=== PATIENT | male | born 1990 | race American Indian/Alaskan Native ===

== ENCOUNTER 2016-08-06 10:22 | Emergency (ER) | payer SELFPAY ==
[2016-08-06 10:47] VITALS: BP 145/90
--- NOTE | 2016-08-06 11:32 | Emergency Department Report ---
Entered by LUCERO DOOLEY, acting as scribe for ALIN DOE NP. ED ENT HPI - General Chief complaint: Dental/Oral Stated complaint: ABCESS Time Seen by Provider: 08/06/16 10:51 Source: patient Mode of arrival: Ambulatory Limitations: No Limitations - History of Present Illness Initial comments: This is a 25 y/o male that is non-toxic, non ill appearing, in no acute distress with c/o tooth #9 dental pain that began 2 day ago. Rates pain a 5/10 in severity, and aching in quality. Patient states that he believes it's a dental abscess. He denies fever, chills, nausea, vomiting, headache, chest pain , SOB, stiff neck, and facial swelling. Patient notes that he has a dentist appointment tomorrow. Allergic to aspirin. MD complaint: tooth pain (# 9) Onset/Timin -: days(s) Location: tooth # (9) Severity: moderate Severity scale (0 -10): 5 Quality: aching Consistency: constant Improves with: none Worsens with: none Associated Symptoms: toothache (left upper tooth #9). denies: fever, cough, gum swelling, pain with swallowing, sore throat, discharge from ear, rhinorrhea - Related Data Previous Rx's Medication Instructions Recorded Last Taken Type Penicillin Vk [Veetids TAB] 500 mg PO QID #28 tablet 12/29/13 Unknown Rx traMADol [Ultram] 50 mg PO Q6HR PRN #20 tablet 12/29/13 Unknown Rx Cyclobenzaprine [Flexeril 10 MG 10 mg PO TID PRN #20 tablet 10/11/14 Unknown Rx TAB] traMADol [Ultram 50 MG tab] 50 mg PO Q6HR PRN #20 tablet 10/11/14 Unknown Rx Amoxicillin/K Clav Tab [Augmentin 1 tab PO Q12HR #20 tab 08/06/16 Unknown Rx 875 mg] Allergies Allergy/AdvReac Type Severity Reaction Status Date / Time aspirin Allergy Hives Verified 12/29/13 05:36 ED Dental HPI - General Chief complaint: Dental/Oral Stated complaint: ABCESS Source: patient Mode of arrival: Ambulatory Limitations: No Limitations - History of Present Illness MD complaint: tooth pain (#9) Onset/Timin -: days(s) Severity: moderate (5/10) Quality: aching Consistency: constant Improves with: none Worsens with: none Dental Associated Symptons: No: Headache, Earache, Sore Throat, Gum Swelling, Fever - Related Data Previous Rx's Medication Instructions Recorded Last Taken Type Penicillin Vk [Veetids TAB] 500 mg PO QID #28 tablet 12/29/13 Unknown Rx traMADol [Ultram] 50 mg PO Q6HR PRN #20 tablet 12/29/13 Unknown Rx Cyclobenzaprine [Flexeril 10 MG 10 mg PO TID PRN #20 tablet 10/11/14 Unknown Rx TAB] traMADol [Ultram 50 MG tab] 50 mg PO Q6HR PRN #20 tablet 10/11/14 Unknown Rx Amoxicillin/K Clav Tab [Augmentin 1 tab PO Q12HR #20 tab 08/06/16 Unknown Rx 875 mg] Allergies Allergy/AdvReac Type Severity Reaction Status Date / Time aspirin Allergy Hives Verified 12/29/13 05:36 ED Review of Systems Comment: All other systems reviewed and negative Constitutional: denies: chills, fever ENT: dental pain (left upper #9). denies: ear pain, throat pain Respiratory: denies: cough, orthopnea, shortness of breath, SOB with exertion, SOB at rest, stridor, wheezing Cardiovascular: denies: chest pain, palpitations Gastrointestinal: denies: nausea, vomiting Musculoskeletal: denies: other (stiff neck) Skin: denies: rash, lesions, other (facial swelling) Neurological: denies: headache, numbness, paresthesias ED Past Medical Hx - Past Medical History Previous Medical History?: No Hx Hypertension: No Hx CVA: No Hx Heart Attack/AMI: No Hx Congestive Heart Failure: No Hx Diabetes: No Hx Deep Vein Thrombosis: No Hx Pulmonary Embolism: No Hx GERD: No Hx Liver Disease: No Hx Renal Disease: No Hx Sickle Cell Disease: No Hx Arthritis: No Hx Headaches / Migraines: No Hx Seizures: No Hx Kidney Stones: No Hx Psychiatric Treatment: No Hx Asthma: No Hx COPD: No Hx Tuberculosis: No Hx Dementia: No Hx HIV: No - Surgical History Past Surgical History?: Yes Hx Coronary Stent: No Hx Open Heart Surgery: No Hx Pacemaker: No Hx Internal Defibrillator: No Hx Cholecystectomy: No Hx Appendectomy: No Hx Breast Surgery: No Additional Surgical History: foot surgery on pinkie toe - Social History Smoking Status: Current Every Day Smoker Substance Use Type: None - Medications Home Medications: Home Medications Medication Instructions Recorded Confirmed Last Taken Type Penicillin Vk [Veetids TAB] 500 mg PO QID #28 tablet 12/29/13 Unknown Rx traMADol [Ultram] 50 mg PO Q6HR PRN #20 tablet 12/29/13 Unknown Rx Cyclobenzaprine [Flexeril 10 MG 10 mg PO TID PRN #20 tablet 10/11/14 Unknown Rx TAB] traMADol [Ultram 50 MG tab] 50 mg PO Q6HR PRN #20 tablet 10/11/14 Unknown Rx Amoxicillin/K Clav Tab [Augmentin 1 tab PO Q12HR #20 tab 08/06/16 Unknown Rx 875 mg] ED Physical Exam - General Limitations: No Limitations General appearance: alert, in no apparent distress - Head Head exam: Present: atraumatic, normocephalic. Absent: other (facial swelling) - Eye Eye exam: Present: normal appearance, PERRL, EOMI Pupils: Present: normal accommodation - ENT ENT exam: Present: normal exam, mucous membranes moist, normal external ear exam - Expanded ENT Exam Expanded Ear exam: Present: normal external inspection Mouth exam: Present: normal external inspection (uvula is midline), tongue normal. Absent: drooling, trismus, muffled voice, tongue elevation, laceration Teeth exam: Present: normal inspection, fractured tooth # (9), dental tenderness # (9). Absent: dental caries, gingival enlargement, other (no dental abscess, fluntuance, drainage, and pus) Throat exam: Positive: normal inspection. Negative: tonsillar erythema, tonsillomegaly, tonsillar exudate, R peritonsillar mass, L peritonsillar mass - Neck Neck exam: Present: normal inspection, full ROM. Absent: tenderness, meningismus, lymphadenopathy - Respiratory Respiratory exam: Present: normal lung sounds bilaterally. Absent: respiratory distress, wheezes, rales, rhonchi, stridor - Cardiovascular Cardiovascular Exam: Present: regular rate, normal rhythm. Absent: systolic murmur, diastolic murmur, rubs, gallop - GI/Abdominal GI/Abdominal exam: Present: soft, normal bowel sounds. Absent: distended - Extremities Exam Extremities exam: Present: normal inspection, full ROM - Back Exam Back exam: Present: normal inspection - Neurological Exam Neurological exam: Present: alert, oriented X3 - Psychiatric Psychiatric exam: Present: normal affect, normal mood - Skin Skin exam: Present: warm, dry, intact. Absent: rash ED Course Vital Signs 08/06/16 10:45 Temperature 98.7 F Pulse Rate 78 Respiratory 16 Rate Blood Pressure 145/90 O2 Sat by Pulse 100 Oximetry ED Medical Decision Making - Medical Decision Making Ed course: This is a 25-year-old male that presents with gingivitis and dental caries 1- patient received Augmentin at discharge and was instructed to follow up with dentist tomorrow. 2- at time time of discharge, the patient does not seem toxic or ill in appearance. No acute signs of distress noted. Patient agrees to discharge treatment plan of care. No further questions noted by the patient. ED Disposition Clinical Impression: Dental caries, Gingivitis Disposition: DC- TO HOME OR SELFCARE Is pt being admited?: No Does the pt Need Aspirin: No Condition: Stable Instructions: Dental Caries (ED), Gingivitis (ED), Amoxicillin/Clavulanate Potassium (By mouth) Additional Instructions: Follow-up dentist in 24 hours Take full course of antibiotics as prescribed. Prescriptions: Amoxicillin/K Clav Tab [Augmentin 875 mg] 1 tab PO Q12HR #20 tab Referrals: CIELO COVINGTON JR, MD [Staff Physician] - 3-5 Days [facility] [Outside] - 3-5 Days Forms: Work/School Release Form(ED) This documentation as recorded by the SOUMYA mendes JASMINE,accurately reflects the service I personally performed and the decisions made by ,ALIN DOE, WES.
== END 2016-08-06 11:50 | disposition home or self-care (01) ==
LOC: ED 10:22
DX: K02.9 Dental caries, unspecified (principal); K05.10 Chronic gingivitis, plaque induced; F17.200 Nicotine dependence, unspecified, uncomplicated
CPT/HCPCS: 99281

== ENCOUNTER 2016-09-04 11:42 | Emergency (ER) | payer SELFPAY ==
[2016-09-04 11:50] VITALS: BP 141/87
--- NOTE | 2016-09-04 12:58 | Emergency Department Report ---
HPI - General Chief Complaint: Upper Respiratory Infection Time Seen by Provider: 09/04/16 12:58 - HPI HPI: Patient is complaining of upper respiratory symptoms. He said he feels like he has the flu for 4 days. Denies any fever or chills. He reports that he has cough and nasal congestion. Denies any dizziness. Report called dear sensation. Denies any sore throat or difficulty swallowing. Denies any shortness of breath or chest pain. He said he took NyQuil for the Aakash but it didn't help. He is denying any pain at present. Patient said this is been going on for a week and half. ED Past Medical Hx - Past Medical History Previous Medical History?: No Hx Hypertension: No Hx CVA: No Hx Heart Attack/AMI: No Hx Congestive Heart Failure: No Hx Diabetes: No Hx Deep Vein Thrombosis: No Hx Pulmonary Embolism: No Hx GERD: No Hx Liver Disease: No Hx Renal Disease: No Hx Sickle Cell Disease: No Hx Arthritis: No Hx Headaches / Migraines: No Hx Seizures: No Hx Kidney Stones: No Hx Psychiatric Treatment: No Hx Asthma: No Hx COPD: No Hx Tuberculosis: No Hx Dementia: No Hx HIV: No - Surgical History Past Surgical History?: Yes Hx Coronary Stent: No Hx Open Heart Surgery: No Hx Pacemaker: No Hx Internal Defibrillator: No Hx Cholecystectomy: No Hx Appendectomy: No Hx Breast Surgery: No Additional Surgical History: foot surgery on pinkie toe - Family History Family history: hypertension - Social History Smoking Status: Current Every Day Smoker Substance Use Type: None Other Social History: single - Medications Home Medications: Home Medications Medication Instructions Recorded Confirmed Last Taken Type Penicillin Vk [Veetids TAB] 500 mg PO QID #28 tablet 12/29/13 Unknown Rx traMADol [Ultram] 50 mg PO Q6HR PRN #20 tablet 12/29/13 Unknown Rx Cyclobenzaprine [Flexeril 10 MG 10 mg PO TID PRN #20 tablet 10/11/14 Unknown Rx TAB] traMADol [Ultram 50 MG tab] 50 mg PO Q6HR PRN #20 tablet 10/11/14 Unknown Rx Amoxicillin/K Clav Tab [Augmentin 1 tab PO Q12HR #20 tab 09/04/16 Unknown Rx 875MG TAB] Cetirizine HCl [ZyrTEC] 10 mg PO QDAY #14 capsule 09/04/16 Unknown Rx Fluticasone [Flonase] 1 spray NS QDAY #1 bottle 09/04/16 Unknown Rx ED Review of Systems ROS: Stated complaint: FLU SYMPTOMS/SORE BODY/THROAT Other details as noted in HPI Comment: All other systems reviewed and negative Constitutional: denies: chills, fever Eyes: denies: eye pain, eye discharge ENT: congestion ( congestion, clogged ear sensation and a runny nose). denies: ear pain, throat pain, dental pain Respiratory: cough. denies: shortness of breath, SOB with exertion, SOB at rest , stridor, wheezing Cardiovascular: denies: chest pain, palpitations, edema, syncope Gastrointestinal: denies: abdominal pain, nausea, vomiting, diarrhea Skin: denies: rash Neurological: denies: headache, weakness, numbness, paresthesias, confusion, abnormal gait, vertigo Physical Exam - Physical Exam Vital Signs: Vital Signs 09/04/16 11:46 Temperature 98.6 F Blood Pressure 141/87 O2 Sat by Pulse 100 Oximetry General: . This is a 25-year-old male well-nourished well-developed in no acute distress Physical Exam: Head: Normocephalic, atraumatic. No abrasions, laceration or contusion Neck: Supple, no adenopathy. Full range of motion. No C-spine tenderness. No muscular tenderness Ears: Bilateral TMs congested, bilaterally EAC without any redness swelling or drainage. Nose: Bilateral nasal mucosa with erythema and congestion. No drainage. No maxillary or frontal sinus tenderness. Mouth: Moist, no pharyngeal exudate or erythema. Uvula is midline and oral airways patent. Tongue is normal. No trismus. No peritonsillar abscess. Lungs: Clear Auscultated bilaterally no rhonchi wheezes or rales Extremity: No clubbing, cyanosis or edema. +2 pulses in all extremities. No neurovascular compromise. Capillary refill is less than 3 seconds. Good color , sensation, movement and temperature in all extremities. Able to ambulate without any difficulties. Skin: Clean dry and intact, no rash or lesions. PSYCH: Normal mood and behavior ED Course Vital Signs 09/04/16 11:46 Temperature 98.6 F Blood Pressure 141/87 O2 Sat by Pulse 100 Oximetry Vital Signs 09/04/16 09/04/16 11:46 13:43 Temperature 98.6 F Pulse Rate 78 Respiratory 17 Rate Blood Pressure 141/87 O2 Sat by Pulse 100 Oximetry - Reevaluation(s) Reevaluation #1: 09/04/16 13:55 Patient had uneventful ED course ED Medical Decision Making - Radiology Data Radiology results: report reviewed - Medical Decision Making [facility] ASSESS/PLAN: ED course: PT here with cold-like symptoms which she thought was flu. Has no fever and respiratory lewis he stable and diagnosed with sinusitis and cough. Discharge diagnosis and treatment plan discussed the patient and he voiced understanding. She does not have a primary care physician so I instructed him to follow up at [facility] for primary care and follow-up sinusitis. Patient was last year on 08/06/2016. Given the fact that patient had symptoms for greater than 10 days I will start him on antibiotic Diagnosis: Acute sinusitis, cough Meds medication: Patient discharged home with prescription for Zyrtec, Flonase and Augmentin. Instructed him that he needs to flush his nostrils out with nasal saline. Patient to follow up with [facility] in 3-5 days. Patient discharged home from emergency room in stable condition Critical care attestation.: If time is entered above; I have spent that time in minutes in the direct care of this critically ill patient, excluding procedure time. ED Disposition Clinical Impression: Cough Acute sinusitis Qualifiers: Sinusitis location: unspecified location Recurrence: non-recurrent Qualified Code(s): J01.90 - Acute sinusitis, unspecified Disposition: - TO HOME OR SELFCARE Is pt being admited?: No Does the pt Need Aspirin: No Condition: Stable Instructions: Sinusitis (ED), Acute Cough (ED) Additional Instructions: Follow-up with your primary care or at [facility] Take antibiotic as prescribed Take Medication as prescribed Saline nasal wash. Prescriptions: Amoxicillin/K Clav Tab [Augmentin 875MG TAB] 1 tab PO Q12HR #20 tab Cetirizine HCl [ZyrTEC] 10 mg PO QDAY #14 capsule Fluticasone [Flonase] 1 spray NS QDAY #1 bottle Referrals: [facility] [Outside] - 3-5 Days Forms: Work/School Release Form(ED)
== END 2016-09-04 14:23 | disposition home or self-care (01) ==
LOC: ED 11:42
DX: J01.90 Acute sinusitis, unspecified (principal); R05 Cough; F17.200 Nicotine dependence, unspecified, uncomplicated
CPT/HCPCS: 99282

== ENCOUNTER 2016-09-25 17:12 | Emergency (ER) | payer SELFPAY ==
[2016-09-25 17:24] VITALS: BP 147/83
== END 2016-09-26 04:22 | disposition left against medical advice (07) ==
LOC: ED 17:12
DX: J02.9 Acute pharyngitis, unspecified (principal); Z53.21 Procedure and treatment not carried out due to patient leaving prior to being seen by health care provider

== ENCOUNTER 2016-09-26 14:48 | Emergency (ER) | payer OTHER ==
--- NOTE | 2016-09-26 19:24 | Emergency Department Report ---
ED ENT HPI - General Chief complaint: Sore Throat Stated complaint: POSS STREP THROAT Time Seen by Provider: 09/26/16 19:16 Source: patient Mode of arrival: Ambulatory Limitations: No Limitations - History of Present Illness MD complaint: sore throat - Related Data Previous Rx's Medication Instructions Recorded Last Taken Type Penicillin Vk [Veetids TAB] 500 mg PO QID #28 tablet 12/29/13 Unknown Rx traMADol [Ultram] 50 mg PO Q6HR PRN #20 tablet 12/29/13 Unknown Rx Cyclobenzaprine [Flexeril 10 MG 10 mg PO TID PRN #20 tablet 10/11/14 Unknown Rx TAB] traMADol [Ultram 50 MG tab] 50 mg PO Q6HR PRN #20 tablet 10/11/14 Unknown Rx Amoxicillin/K Clav Tab [Augmentin 1 tab PO Q12HR #20 tab 09/04/16 Unknown Rx 875MG TAB] Cetirizine HCl [ZyrTEC] 10 mg PO QDAY #14 capsule 09/04/16 Unknown Rx Fluticasone [Flonase] 1 spray NS QDAY #1 bottle 09/04/16 Unknown Rx Allergies Allergy/AdvReac Type Severity Reaction Status Date / Time aspirin Allergy Hives Verified 12/29/13 05:36 ED Dental HPI - General Chief complaint: Sore Throat Stated complaint: POSS STREP THROAT Time Seen by Provider: 09/26/16 19:16 Source: patient Mode of arrival: Ambulatory Limitations: No Limitations - Related Data Previous Rx's Medication Instructions Recorded Last Taken Type Penicillin Vk [Veetids TAB] 500 mg PO QID #28 tablet 12/29/13 Unknown Rx traMADol [Ultram] 50 mg PO Q6HR PRN #20 tablet 12/29/13 Unknown Rx Cyclobenzaprine [Flexeril 10 MG 10 mg PO TID PRN #20 tablet 10/11/14 Unknown Rx TAB] traMADol [Ultram 50 MG tab] 50 mg PO Q6HR PRN #20 tablet 10/11/14 Unknown Rx Amoxicillin/K Clav Tab [Augmentin 1 tab PO Q12HR #20 tab 09/04/16 Unknown Rx 875MG TAB] Cetirizine HCl [ZyrTEC] 10 mg PO QDAY #14 capsule 09/04/16 Unknown Rx Fluticasone [Flonase] 1 spray NS QDAY #1 bottle 09/04/16 Unknown Rx Allergies Allergy/AdvReac Type Severity Reaction Status Date / Time aspirin Allergy Hives Verified 12/29/13 05:36 ED Review of Systems ROS: Stated complaint: POSS STREP THROAT Other details as noted in HPI ED Past Medical Hx - Past Medical History Previous Medical History?: No Hx Hypertension: No Hx CVA: No Hx Heart Attack/AMI: No Hx Congestive Heart Failure: No Hx Diabetes: No Hx Deep Vein Thrombosis: No Hx Pulmonary Embolism: No Hx GERD: No Hx Liver Disease: No Hx Renal Disease: No Hx Sickle Cell Disease: No Hx Arthritis: No Hx Headaches / Migraines: No Hx Seizures: No Hx Kidney Stones: No Hx Psychiatric Treatment: No Hx Asthma: No Hx COPD: No Hx Tuberculosis: No Hx Dementia: No Hx HIV: No - Surgical History Hx Coronary Stent: No Hx Open Heart Surgery: No Hx Pacemaker: No Hx Internal Defibrillator: No Hx Cholecystectomy: No Hx Appendectomy: No Hx Breast Surgery: No Additional Surgical History: foot surgery on pinkie toe - Social History Smoking Status: Heavy Tobacco Smoker Substance Use Type: Marijuana - Medications Home Medications: Home Medications Medication Instructions Recorded Confirmed Last Taken Type Penicillin Vk [Veetids TAB] 500 mg PO QID #28 tablet 12/29/13 Unknown Rx traMADol [Ultram] 50 mg PO Q6HR PRN #20 tablet 12/29/13 Unknown Rx Cyclobenzaprine [Flexeril 10 MG 10 mg PO TID PRN #20 tablet 10/11/14 Unknown Rx TAB] traMADol [Ultram 50 MG tab] 50 mg PO Q6HR PRN #20 tablet 10/11/14 Unknown Rx Amoxicillin/K Clav Tab [Augmentin 1 tab PO Q12HR #20 tab 09/04/16 Unknown Rx 875MG TAB] Cetirizine HCl [ZyrTEC] 10 mg PO QDAY #14 capsule 09/04/16 Unknown Rx Fluticasone [Flonase] 1 spray NS QDAY #1 bottle 09/04/16 Unknown Rx ED Physical Exam - General Limitations: No Limitations ED Course Vital Signs 09/26/16 14:53 Temperature 98.5 F Pulse Rate 95 H Respiratory 16 Rate Blood Pressure 142/83 O2 Sat by Pulse 100 Oximetry Critical care attestation.: If time is entered above; I have spent that time in minutes in the direct care of this critically ill patient, excluding procedure time. ED Disposition Condition: Stable Referrals: PRIMARY CARE,MD [Primary Care Provider] - 3-5 Days
[2016-09-26] MEDS ORDERED: TYLENOL PO ONE (19:30)
[2016-09-26 20:25] VITALS: BP 137/89
--- NOTE | 2016-09-26 21:20 | Emergency Department Report ---
Entered by LUCERO DOOLEY, acting as scribe for TJ BALDERRAMA PA. ED ENT HPI - General Chief complaint: Sore Throat Stated complaint: POSS STREP THROAT Time Seen by Provider: 09/26/16 19:16 Source: patient Mode of arrival: Ambulatory Limitations: No Limitations - History of Present Illness Initial comments: 25 y/o male with no significant PMHx presents to the ED c/o a sore throat that began 2 days ago. Rates pain a 5/10 in severity, which he describes as burning and aching in quality. Aggravated with swallowing and alleviated with nothing. Reports associated oral white lesions, but he denies fever, chills, body aches, nausea, vomiting, headache, cough, chest pain, SOB, congestion, and rhinorrhea. Notes that he performs oral sex regularly on the opposite sex. Denies any sick contacts with any diagnosed with strep throat. Denies being exposed to an STD. Uses tobacco products and illicit drugs (marijuana). Allergic to aspirin. MD complaint: sore throat Onset/Timin -: days(s) Location: throat Severity: moderate Severity scale (0 -10): 5 Quality: burning, aching Consistency: constant Improves with: none Worsens with: swallowing, eating Associated Symptoms: sore throat, other (oral white lesions). denies: fever, cough, gum swelling, toothache, pain with swallowing, tinnitus, hearing loss, discharge from ear, rhinorrhea - Related Data Previous Rx's Medication Instructions Recorded Last Taken Type Penicillin Vk [Veetids TAB] 500 mg PO QID #28 tablet 12/29/13 Unknown Rx traMADol [Ultram] 50 mg PO Q6HR PRN #20 tablet 12/29/13 Unknown Rx Cyclobenzaprine [Flexeril 10 MG 10 mg PO TID PRN #20 tablet 10/11/14 Unknown Rx TAB] traMADol [Ultram 50 MG tab] 50 mg PO Q6HR PRN #20 tablet 10/11/14 Unknown Rx Amoxicillin/K Clav Tab [Augmentin 1 tab PO Q12HR #20 tab 09/04/16 Unknown Rx 875MG TAB] Cetirizine HCl [ZyrTEC] 10 mg PO QDAY #14 capsule 09/04/16 Unknown Rx Fluticasone [Flonase] 1 spray NS QDAY #1 bottle 07/25/17 Unknown Rx Acetaminophen [Acetaminophen TAB] 500 mg PO Q6HR PRN #25 tablet 09/26/16 Unknown Rx Benzocaine/Menthol [Cepacol Sore 1 each MM Q4H PRN #1 box 09/26/16 Unknown Rx Throat Lozenge] Chlorhexidine Mouthwash [Peridex] 15 ml MM BID #1 bottle 09/26/16 Unknown Rx Allergies Allergy/AdvReac Type Severity Reaction Status Date / Time aspirin Allergy Hives Verified 12/29/13 05:36 ED Dental HPI - General Chief complaint: Sore Throat Stated complaint: POSS STREP THROAT Time Seen by Provider: 09/26/16 19:16 Source: patient Mode of arrival: Ambulatory Limitations: No Limitations - History of Present Illness MD complaint: sore throat Onset/Timin -: days(s) Severity: moderate (5/10) Quality: burning, aching Consistency: constant Improves with: none Worsens with: swallowing, eating, hot/cold liquids Dental Associated Symptons: Yes: Sore Throat. No: Headache, Earache, Gum Swelling, Fever - Related Data Previous Rx's Medication Instructions Recorded Last Taken Type Penicillin Vk [Veetids TAB] 500 mg PO QID #28 tablet 12/29/13 Unknown Rx traMADol [Ultram] 50 mg PO Q6HR PRN #20 tablet 12/29/13 Unknown Rx Cyclobenzaprine [Flexeril 10 MG 10 mg PO TID PRN #20 tablet 10/11/14 Unknown Rx TAB] traMADol [Ultram 50 MG tab] 50 mg PO Q6HR PRN #20 tablet 10/11/14 Unknown Rx Amoxicillin/K Clav Tab [Augmentin 1 tab PO Q12HR #20 tab 09/04/16 Unknown Rx 875MG TAB] Cetirizine HCl [ZyrTEC] 10 mg PO QDAY #14 capsule 09/04/16 Unknown Rx Fluticasone [Flonase] 1 spray NS QDAY #1 bottle 09/04/16 Unknown Rx Acetaminophen [Acetaminophen TAB] 500 mg PO Q6HR PRN #25 tablet 09/26/16 Unknown Rx Benzocaine/Menthol [Cepacol Sore 1 each MM Q4H PRN #1 box 09/26/16 Unknown Rx Throat Lozenge] Chlorhexidine Mouthwash [Peridex] 15 ml MM BID #1 bottle 09/26/16 Unknown Rx Allergies Allergy/AdvReac Type Severity Reaction Status Date / Time aspirin Allergy Hives Verified 12/29/13 05:36 ED Review of Systems Comment: All other systems reviewed and negative Constitutional: denies: chills, diaphoresis, fever, weakness Eyes: denies: eye pain, eye discharge, vision change ENT: throat pain. denies: ear pain, dental pain, hearing loss, epistaxis, congestion Respiratory: denies: cough, orthopnea, shortness of breath, SOB with exertion, SOB at rest, stridor, wheezing Cardiovascular: denies: chest pain, palpitations, dyspnea on exertion, orthopnea , edema, syncope, paroxysmal nocturnal dyspnea Endocrine: no symptoms reported Gastrointestinal: denies: abdominal pain, nausea, vomiting, diarrhea Musculoskeletal: denies: back pain, joint swelling, arthralgia, myalgia Skin: lesions (oral white lesions). denies: rash Neurological: denies: headache, weakness, numbness, paresthesias ED Past Medical Hx - Past Medical History Previous Medical History?: No Hx Hypertension: No Hx CVA: No Hx Heart Attack/AMI: No Hx Congestive Heart Failure: No Hx Diabetes: No Hx Deep Vein Thrombosis: No Hx Pulmonary Embolism: No Hx GERD: No Hx Liver Disease: No Hx Renal Disease: No Hx Sickle Cell Disease: No Hx Arthritis: No Hx Headaches / Migraines: No Hx Seizures: No Hx Kidney Stones: No Hx Psychiatric Treatment: No Hx Asthma: No Hx COPD: No Hx Tuberculosis: No Hx Dementia: No Hx HIV: No - Surgical History Past Surgical History?: Yes Hx Coronary Stent: No Hx Open Heart Surgery: No Hx Pacemaker: No Hx Internal Defibrillator: No Hx Cholecystectomy: No Hx Appendectomy: No Hx Breast Surgery: No Additional Surgical History: foot surgery on pinkie toe - Family History Family history: no significant - Social History Smoking Status: Heavy Tobacco Smoker Substance Use Type: Marijuana - Medications Home Medications: Home Medications Medication Instructions Recorded Confirmed Last Taken Type Penicillin Vk [Veetids TAB] 500 mg PO QID #28 tablet 12/29/13 Unknown Rx traMADol [Ultram] 50 mg PO Q6HR PRN #20 tablet 12/29/13 Unknown Rx Cyclobenzaprine [Flexeril 10 MG 10 mg PO TID PRN #20 tablet 10/11/14 Unknown Rx TAB] traMADol [Ultram 50 MG tab] 50 mg PO Q6HR PRN #20 tablet 10/11/14 Unknown Rx Amoxicillin/K Clav Tab [Augmentin 1 tab PO Q12HR #20 tab 09/04/16 Unknown Rx 875MG TAB] Cetirizine HCl [ZyrTEC] 10 mg PO QDAY #14 capsule 09/04/16 Unknown Rx Fluticasone [Flonase] 1 spray NS QDAY #1 bottle 09/04/16 Unknown Rx Acetaminophen [Acetaminophen TAB] 500 mg PO Q6HR PRN #25 tablet 09/26/16 Unknown Rx Benzocaine/Menthol [Cepacol Sore 1 each MM Q4H PRN #1 box 09/26/16 Unknown Rx Throat Lozenge] Chlorhexidine Mouthwash [Peridex] 15 ml MM BID #1 bottle 09/26/16 Unknown Rx ED Physical Exam - General Limitations: No Limitations General appearance: alert, in no apparent distress - Head Head exam: Present: atraumatic, normocephalic - Eye Eye exam: Present: normal appearance, PERRL, EOMI Pupils: Present: normal accommodation - ENT ENT exam: Present: mucous membranes moist, normal external ear exam, other ( apthous ulcer on tongue and roof of soft palate). Absent: normal exam, normal orophraynx - Expanded ENT Exam Expanded Ear exam: Present: normal external inspection Mouth exam: Present: normal external inspection, tongue normal, other (oral white lesions on soft palate on roof of mouth, uvula is midline). Absent: drooling, trismus, muffled voice, tongue elevation, laceration Teeth exam: Present: normal inspection Throat exam: Positive: tonsillomegaly. Negative: normal inspection, tonsillar erythema, tonsillar exudate, R peritonsillar mass, L peritonsillar mass - Neck Neck exam: Present: normal inspection, full ROM. Absent: tenderness, meningismus, lymphadenopathy, thyromegaly - Respiratory Respiratory exam: Present: normal lung sounds bilaterally. Absent: respiratory distress, wheezes, rales, rhonchi, stridor, accessory muscle use, decreased breath sounds - Cardiovascular Cardiovascular Exam: Present: regular rate, normal rhythm, normal heart sounds. Absent: systolic murmur, diastolic murmur, rubs, gallop - GI/Abdominal GI/Abdominal exam: Present: soft, normal bowel sounds. Absent: distended - Extremities Exam Extremities exam: Present: normal inspection, full ROM - Back Exam Back exam: Present: normal inspection, full ROM - Neurological Exam Neurological exam: Present: alert, oriented X3, normal gait - Psychiatric Psychiatric exam: Present: normal affect, normal mood - Skin Skin exam: Present: warm, dry, intact. Absent: rash ED Course Vital Signs 09/26/16 09/26/16 14:53 19:53 Temperature 98.5 F Pulse Rate 95 H Respiratory 16 18 Rate Blood Pressure 142/83 O2 Sat by Pulse 100 Oximetry ED Medical Decision Making - Medical Decision Making a/p : apthous ulcer 1- motrin prn, peridex, benzocaine drops 2- f/u with PMD and dental ED Disposition Clinical Impression: Aphthous ulcer, Lesion of mouth Disposition: TO HOME OR SELFCARE Is pt being admited?: No Does the pt Need Aspirin: No Condition: Stable Instructions: Canker Sores (ED) Prescriptions: Acetaminophen [Acetaminophen TAB] 500 mg PO Q6HR PRN #25 tablet PRN Reason: Pain Benzocaine/Menthol [Cepacol Sore Throat Lozenge] 1 each MM Q4H PRN #1 box PRN Reason: Pain Chlorhexidine Mouthwash [Peridex] 15 ml MM BID #1 bottle Referrals: [facility] [Outside] - 3-5 Days [facility] [Outside] - 3-5 Days [facility] [Provider Group] - 3-5 Days Forms: Accompanied Note, Work/School Release Form(ED) Time of Disposition: 20:14 This documentation as recorded by the SOUMYA mendes JASMINE,accurately reflects the service I personally performed and the decisions made by ,TJ BALDERRAMA PA.
== END 2016-09-26 20:24 | disposition home or self-care (01) ==
LOC: ED 14:48
DX: K12.0 Recurrent oral aphthae (principal); K13.70 Unspecified lesions of oral mucosa; F17.200 Nicotine dependence, unspecified, uncomplicated; F12.10 Cannabis abuse, uncomplicated
CPT/HCPCS: 87116; 87430; 99282

== ENCOUNTER 2017-06-27 15:17 | Emergency (ER) | payer SELFPAY ==
[2017-06-27 15:26] VITALS: BP 130/95
== END 2017-06-27 17:22 | disposition left against medical advice (07) ==
LOC: ED 15:17
DX: K08.89 Other specified disorders of teeth and supporting structures (principal); Z53.21 Procedure and treatment not carried out due to patient leaving prior to being seen by health care provider

== ENCOUNTER 2021-10-06 12:56 | Emergency (ER) | payer SELFPAY ==
--- NOTE | 2021-10-06 14:54 | Event Note ---
ED Screening Note ED Screening Note: Patient presents with sore throat and sores in his mouth. Symptoms associated with sore throat, red eyes, itchy eye, with cough which all started 3 days ago and progressively getting worse. History of gingivitis stomatitis General: Nontoxic appearing no acute distress-no Tarsha in his mouth, gingival sores diffuse poor dentition Cardiac: Regular rate, normal heart sounds Respiratory: Normal lung sounds bilaterally no use of quality control assessor muscles GI/-normal sounds, nontender no guarding Musculoskeletal-normal inspection full range of motion Neuro-alert oriented x4. In the setting of a significantly high volume and record number of patients presenting to the emergency department and the fact that we have a limited space to see patients we have implemented the provider in triage protocol this allows an expedited initial exam of patients that might otherwise have left without being seen or who would wait longer than usual to be seen by provider. I interviewed the patient and performed a limited physical exam. This patient is a pulled from the waiting room to triage room for an initial assessment of adrenal studies and then returned to the waiting room pending results of the studies. The ultimate final evaluation and disposition may be performed by another provider depending on room and provider availability.
--- NOTE | 2021-10-06 16:40 | Emergency Department Report ---
ED ENT HPI - General Chief complaint: Sore Throat Stated complaint: ALLERGIES Time Seen by Provider: 10/06/21 15:59 Source: patient Mode of arrival: Ambulatory Limitations: No Limitations - History of Present Illness Initial comments: This is a 30-year-old male with who presents to the ED complaining of oral lesions, sore throat and bilateral eye redness x1 week. Patient states that symptoms began with a red and inflamed eyes which she thought was allergies. Patient states shortly after that he started experiencing and soreness to the throat. Patient states today he noticed the mouth sores so decided come in to be evaluated. Patient states he has had similar symptoms in the past. Patient states throat is sore and pain with swallowing. Patient denies fever, chills, nausea vomiting, difficulty swallowing or any other symptoms MD complaint: sore throat - Related Data Previous Rx's Medication Instructions Recorded Last Taken Type Penicillin Vk [Veetids TAB] 500 mg PO QID #28 tablet 12/29/13 Unknown Rx traMADoL [Ultram] 50 mg PO Q6HR PRN #20 tablet 12/29/13 Unknown Rx Cyclobenzaprine [Flexeril 10 MG 10 mg PO TID PRN #20 tablet 10/11/14 Unknown Rx TAB] traMADoL [Ultram 50 MG tab] 50 mg PO Q6HR PRN #20 tablet 10/11/14 Unknown Rx Amoxicillin/K Clav Tab [Augmentin 1 tab PO Q12HR #20 tab 09/04/16 Unknown Rx 875MG TAB] Cetirizine HCl [ZyrTEC] 10 mg PO QDAY #14 capsule 09/04/16 Unknown Rx Fluticasone [Flonase] 1 spray NS QDAY #1 bottle 09/04/16 Unknown Rx Acetaminophen [Acetaminophen TAB] 500 mg PO Q6HR PRN #25 tablet 09/26/16 Unknown Rx Benzocaine/Menthol [Cepacol Sore 1 each MM Q4H PRN #1 box 09/26/16 Unknown Rx Throat Lozenge] Chlorhexidine Mouthwash [Peridex] 15 ml MM BID #1 bottle 09/26/16 Unknown Rx Amoxicillin [Amoxicillin TAB] 875 mg PO BID #20 10/06/21 Unknown Rx Chlorhexidine Mouthwash [Peridex] 15 ml MM BID #1 bottle 10/06/21 Unknown Rx Ibuprofen [Motrin] 800 mg PO Q8HR #30 tablet 10/06/21 Unknown Rx Tobramycin 0.3% [Tobrex] 1 - 2 drop OP Q8HR #1 bottle 10/06/21 Unknown Rx Allergies Allergy/AdvReac Type Severity Reaction Status Date / Time aspirin Allergy Hives Verified 10/06/21 14:43 ED Dental HPI - General Chief complaint: Sore Throat Stated complaint: ALLERGIES Time Seen by Provider: 10/06/21 15:59 Source: patient Mode of arrival: Ambulatory Limitations: No Limitations - Related Data Previous Rx's Medication Instructions Recorded Last Taken Type Penicillin Vk [Veetids TAB] 500 mg PO QID #28 tablet 12/29/13 Unknown Rx traMADoL [Ultram] 50 mg PO Q6HR PRN #20 tablet 12/29/13 Unknown Rx Cyclobenzaprine [Flexeril 10 MG 10 mg PO TID PRN #20 tablet 10/11/14 Unknown Rx TAB] traMADoL [Ultram 50 MG tab] 50 mg PO Q6HR PRN #20 tablet 10/11/14 Unknown Rx Amoxicillin/K Clav Tab [Augmentin 1 tab PO Q12HR #20 tab 09/04/16 Unknown Rx 875MG TAB] Cetirizine HCl [ZyrTEC] 10 mg PO QDAY #14 capsule 09/04/16 Unknown Rx Fluticasone [Flonase] 1 spray NS QDAY #1 bottle 09/04/16 Unknown Rx Acetaminophen [Acetaminophen TAB] 500 mg PO Q6HR PRN #25 tablet 09/26/16 Unknown Rx Benzocaine/Menthol [Cepacol Sore 1 each MM Q4H PRN #1 box 09/26/16 Unknown Rx Throat Lozenge] Chlorhexidine Mouthwash [Peridex] 15 ml MM BID #1 bottle 09/26/16 Unknown Rx Amoxicillin [Amoxicillin TAB] 875 mg PO BID #20 10/06/21 Unknown Rx Chlorhexidine Mouthwash [Peridex] 15 ml MM BID #1 bottle 10/06/21 Unknown Rx Ibuprofen [Motrin] 800 mg PO Q8HR #30 tablet 10/06/21 Unknown Rx Tobramycin 0.3% [Tobrex] 1 - 2 drop OP Q8HR #1 bottle 10/06/21 Unknown Rx Allergies Allergy/AdvReac Type Severity Reaction Status Date / Time aspirin Allergy Hives Verified 10/06/21 14:43 ED Review of Systems ROS: Stated complaint: ALLERGIES Other details as noted in HPI Comment: All other systems reviewed and negative ED Past Medical Hx - Past Medical History Hx Hypertension: No Hx CVA: No Hx Heart Attack/AMI: No Hx Congestive Heart Failure: No Hx Diabetes: No Hx Deep Vein Thrombosis: No Hx Pulmonary Embolism: No Hx GERD: No Hx Liver Disease: No Hx Renal Disease: No Hx Sickle Cell Disease: No Hx Arthritis: No Hx Headaches / Migraines: No Hx Seizures: No Hx Kidney Stones: No Hx Psychiatric Treatment: No Hx Asthma: No Hx COPD: No Hx Tuberculosis: No Hx Dementia: No Hx HIV: No Additional medical history: RIGHT FOOT INJURY - Surgical History Hx Coronary Stent: No Hx Open Heart Surgery: No Hx Pacemaker: No Hx Internal Defibrillator: No Hx Cholecystectomy: No Hx Appendectomy: No Hx Breast Surgery: No Additional Surgical History: foot surgery on pinkie toe - Social History Smoking Status: Current Every Day Smoker Substance Use Type: Alcohol - Medications Home Medications: Home Medications Medication Instructions Recorded Confirmed Last Taken Type Penicillin Vk [Veetids TAB] 500 mg PO QID #28 tablet 12/29/13 Unknown Rx traMADoL [Ultram] 50 mg PO Q6HR PRN #20 tablet 12/29/13 Unknown Rx Cyclobenzaprine [Flexeril 10 MG 10 mg PO TID PRN #20 tablet 10/11/14 Unknown Rx TAB] traMADoL [Ultram 50 MG tab] 50 mg PO Q6HR PRN #20 tablet 10/11/14 Unknown Rx Amoxicillin/K Clav Tab [Augmentin 1 tab PO Q12HR #20 tab 09/04/16 Unknown Rx 875MG TAB] Cetirizine HCl [ZyrTEC] 10 mg PO QDAY #14 capsule 09/04/16 Unknown Rx Fluticasone [Flonase] 1 spray NS QDAY #1 bottle 09/04/16 Unknown Rx Acetaminophen [Acetaminophen TAB] 500 mg PO Q6HR PRN #25 tablet 09/26/16 Unknown Rx Benzocaine/Menthol [Cepacol Sore 1 each MM Q4H PRN #1 box 09/26/16 Unknown Rx Throat Lozenge] Chlorhexidine Mouthwash [Peridex] 15 ml MM BID #1 bottle 09/26/16 Unknown Rx Amoxicillin [Amoxicillin TAB] 875 mg PO BID #20 10/06/21 Unknown Rx Chlorhexidine Mouthwash [Peridex] 15 ml MM BID #1 bottle 10/06/21 Unknown Rx Ibuprofen [Motrin] 800 mg PO Q8HR #30 tablet 10/06/21 Unknown Rx Tobramycin 0.3% [Tobrex] 1 - 2 drop OP Q8HR #1 bottle 10/06/21 Unknown Rx ED Physical Exam - General Limitations: No Limitations General appearance: alert, in no apparent distress - Head Head exam: Present: atraumatic, normocephalic - Eye Eye exam: Present: normal appearance - ENT ENT exam: Present: mucous membranes moist - Expanded ENT Exam Expanded Ear exam: Present: normal external inspection Mouth exam: Present: tongue normal, other (Multiple lesions noted and refer the mouth and the inner lips). Absent: drooling, tongue elevation Throat exam: Positive: tonsillar erythema, tonsillomegaly, tonsillar exudate. Negative: R peritonsillar mass, L peritonsillar mass - Neck Neck exam: Present: normal inspection, full ROM, lymphadenopathy - Respiratory Respiratory exam: Present: normal lung sounds bilaterally. Absent: respiratory distress - Cardiovascular Cardiovascular Exam: Present: regular rate, normal rhythm. Absent: systolic murmur, diastolic murmur, rubs, gallop - GI/Abdominal GI/Abdominal exam: Present: soft, normal bowel sounds. Absent: distended, tenderness - Rectal Rectal exam: Present: deferred - Extremities Exam Extremities exam: Present: normal inspection, full ROM - Back Exam Back exam: Present: normal inspection - Neurological Exam Neurological exam: Present: alert, oriented X3 - Psychiatric Psychiatric exam: Present: normal affect, normal mood - Skin Skin exam: Present: warm, dry, intact, normal color. Absent: rash ED Course Vital Signs 10/06/21 14:38 Temperature 99.0 F Pulse Rate 65 Respiratory 18 Rate Blood Pressure 150/97 [Right] O2 Sat by Pulse 99 Oximetry ED Medical Decision Making - Medical Decision Making 30-year-old male presents with pharyngitis/conjunctivitis. ED course: Rapid strep tests ordered rapid strep test positive Patient received 1 dose of Decadron and Magic mouthwash There was no fever in the ED stay. Rapid strep test still pending. Patient was discharged with prophylaxis treatment due to clinical findings consistent for strep. Vital signs stable patient is in no acute or respiratory distress. Discussed treatment with patient Discussed the patient that strep throat is contagious and to limit sharing spoons and such. Application to be sent home on Motrin and a couple of days worth of prednisone. Discussed with patient follow-up with primary care physician. Patient verbally states he understands and will comply to follow-up. Critical care attestation.: If time is entered above; I have spent that time in minutes in the direct care of this critically ill patient, excluding procedure time. ED Disposition Clinical Impression: Conjunctivitis, Pharyngitis, Gingivitis Disposition: HOME / SELF CARE / HOMELESS Is pt being admited?: No Does the pt Need Aspirin: No Condition: Stable Instructions: Pharyngitis, [id number], How to Use Eye Drops and Eye Ointments Additional Instructions: Make sure to follow up with the primary care physician as discussed. Take all your medications as you've been prescribed. If you have any worsening symptoms or develop new symptoms please return to ED immediately. Prescriptions: Amoxicillin [Amoxicillin TAB] 875 mg PO BID #20 Ibuprofen [Motrin] 800 mg PO Q8HR #30 tablet Chlorhexidine Mouthwash [Peridex] 15 ml MM BID #1 bottle Tobramycin 0.3% [Tobrex] 1 - 2 drop OP Q8HR #1 bottle [facility] - [facility] Days [facility] [Outside] - 3-5 Days [facility] [Outside] - 3-5 Days Forms: Work/School Release Form(ED) Time of Disposition: 19:32
[2021-10-06] MEDS ORDERED: dexAMETHasone 20 MG/5 ML VIAL IM ONE (17:02)
[2021-10-06] MEDS ORDERED: MAGIC MOUTHWASH 30ML PO ONE (18:00)
[2021-10-06 20:53] VITALS: BP 157/96
== END 2021-10-06 20:52 | disposition home or self-care (01) ==
LOC: ED 12:56
DX: H10.9 Unspecified conjunctivitis (principal); J02.9 Acute pharyngitis, unspecified; K05.10 Chronic gingivitis, plaque induced; F17.200 Nicotine dependence, unspecified, uncomplicated; Z72.89 Other problems related to lifestyle; Z88.6 Allergy status to analgesic agent; Z79.899 Other long term (current) drug therapy
CPT/HCPCS: 96372; 99283; J1100